=== PATIENT | female | born 1955 | race Two or more races ===

== ENCOUNTER → 2018-07-17 | Outpatient (REF) | LOC: M LAB LCGH 13:38 | PROVIDERS: ATTEND Surgery | DX: K35.32 Acute appendicitis with perforation, localized peritonitis, and gangrene, without abscess (principal) ==

== ENCOUNTER → 2018-09-24 | Outpatient (REF) | payer BC | LOC: M LAB LCGH 17:44 | PROVIDERS: ATTEND Physician Assistant | DX: D48.5 Neoplasm of uncertain behavior of skin (principal) ==

== ENCOUNTER → 2021-08-07 | Outpatient (REF) | payer MEDICARE, BC | LOC: M SFHCDERM 14:07 | PROVIDERS: ATTEND Nurse Practitioner Family | DX: L57.0 Actinic keratosis (principal) ==

== ENCOUNTER → 2022-10-07 | Outpatient (REF) | payer MEDICARE, BC | LOC: M SFHCDERM 17:44 | PROVIDERS: ATTEND Nurse Practitioner Family | DX: L30.8 Other specified dermatitis (principal); L85.8 Other specified epidermal thickening ==